=== PATIENT | male | born 2000 | race Caucasian/White ===

== ENCOUNTER 2024-04-01 12:02 | Emergency (ER) | payer BC, MEDICAID, SELFPAY ==
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
[2024-04-01 12:15] VITALS: BP 106/49; PULSE 70; RESP 16; TEMP 36.5; O2SAT 100
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
[2024-04-01] MEDS: TETANUS,DIPHTHERIA,AC PERTUSSIS ADULT (0.5 ML) BOOSTRIX IM (12:41)
== END 2024-04-01 13:45 | disposition home or self-care (01) ==
PROVIDERS: Emergency Provider Nurse Practitioner
DX: S60.212A Contusion of left wrist, initial encounter (principal); S60.222A Contusion of left hand, initial encounter; S60.221A Contusion of right hand, initial encounter; S20.311A Abrasion of right front wall of thorax, initial encounter; V28.49XA Other motorcycle driver injured in noncollision transport accident in traffic accident, initial encounter; Z23 Encounter for immunization
CPT/HCPCS: 73110; 73130; 90471; 90715; 99214; G0463